=== PATIENT | female | born 1965 | race Caucasian/White ===

== ENCOUNTER 2017-07-26 11:13 | Emergency (ER) | payer SELFPAY, OTHER | END 2017-07-26 14:17 | disposition left against medical advice (07) | LOC: E/R 11:13 | DX: Z53.21 Procedure and treatment not carried out due to patient leaving prior to being seen by health care provider (principal) | CPT/HCPCS: 93005 ==

== ENCOUNTER 2017-07-27 11:19 | Emergency (ER) | payer OTHER | END 2017-07-27 13:56 | disposition left against medical advice (07) | LOC: FTE 11:19 | DX: R11.10 Vomiting, unspecified (principal); R19.7 Diarrhea, unspecified; G47.00 Insomnia, unspecified; F41.9 Anxiety disorder, unspecified; F17.210 Nicotine dependence, cigarettes, uncomplicated; Z79.82 Long term (current) use of aspirin | CPT/HCPCS: 99282; Z7502 ==

== ENCOUNTER 2018-02-09 12:24 | Emergency (ER) | payer SELFPAY, OTHER | END 2018-02-09 13:40 | disposition left against medical advice (07) | LOC: FTE 12:24 | DX: Z53.21 Procedure and treatment not carried out due to patient leaving prior to being seen by health care provider (principal) ==

== ENCOUNTER 2018-02-18 07:20 | Emergency (ER) | payer OTHER ==
[2018-02-18] MEDS: ACETAMINOPHEN 325 MG TAB PO (08:30)
[2018-02-18 09:10] LABS: AMPHETAMINE/METHAMPHETAMINE Negative (NEGATIVE); BARBITURATES Negative (NEGATIVE); CANNABINOIDS Negative (NEGATIVE); COCAINE Negative (NEGATIVE); OPIATES Positive (NEGATIVE)
[2018-02-18 09:12] LABS: BENZODIAZEPINES Positive (NEGATIVE)
== END 2018-02-18 10:53 | disposition home or self-care (01) ==
LOC: E/R 07:20
DX: S16.1XXA Strain of muscle, fascia and tendon at neck level, initial encounter (principal); S39.92XA Unspecified injury of lower back, initial encounter; F11.10 Opioid abuse, uncomplicated; F13.10 Sedative, hypnotic or anxiolytic abuse, uncomplicated; Y04.8XXA Assault by other bodily force, initial encounter; Z76.5 Malingerer [conscious simulation]; Z87.891 Personal history of nicotine dependence; Z79.82 Long term (current) use of aspirin
CPT/HCPCS: 80307; 99283

== ENCOUNTER 2018-03-12 02:59 | Emergency (ER) | payer OTHER ==
[2018-03-12 09:13] LABS: TROPONIN-I < 0.012 ng/ml (0.000-0.120)
[2018-03-12] MEDS: ACETAMINOPHEN 325 MG TAB PO (09:37)
== END 2018-03-12 09:37 | disposition home or self-care (01) ==
LOC: E/R 02:59
DX: R07.9 Chest pain, unspecified (principal); F17.210 Nicotine dependence, cigarettes, uncomplicated; I25.2 Old myocardial infarction; Z72.89 Other problems related to lifestyle; Z79.82 Long term (current) use of aspirin
CPT/HCPCS: 84484; 93005; 99284-25

== ENCOUNTER 2018-07-26 01:24 | Emergency (ER) | payer OTHER ==
[2018-07-26] MEDS: ACETAMINOPHEN 325 MG TAB PO (02:27)
== END 2018-07-26 04:04 | disposition home or self-care (01) ==
LOC: E/R 04:04
DX: R07.89 Other chest pain (principal); I25.2 Old myocardial infarction; F17.210 Nicotine dependence, cigarettes, uncomplicated; Z79.82 Long term (current) use of aspirin
CPT/HCPCS: 71045; 93005; 99284-25